=== PATIENT | male | born 1940 | race Caucasian/White ===

== ENCOUNTER → 2017-06-28 | Day surgery (SDC) | payer OTHER ==
[2017-06-21 15:30] VITALS: Ht 177.8 cm; Wt 109.5 kg
[~2017-06-28] VITALS: Ht 177.8 cm; Wt 109.5 kg
[~2017-06-28] MED LIST: ACET-1256 PO; ALLO100T PO; AMIT75TA2 PO; ASPCH81X PO; BYDUREON INJ; CLR10 PO; CYAN1SUB13 INJ; INSU1INJ33 SC; LIDOCAINE HCL 2% 2 ML VIAL (20MG/ML) ONE; LINA1TAB PO; LISI-729 PO; LPT/40 PO; MAGN400T6 PO; MELA1CAP9 PO; METO50TA7 PO; OMEP20CA59 PO; PLAVIX75 PO; PROB1TAB16 PO; PROPOFOL IV EMULSION 10 MG/ML 20 ML VIAL IV ONE; QUET1TAB34 PO; SODIUM CHLORIDE 0.9% 500ML 500 ML IV ONE; VENL150C56 PO; VITAMIN D2 PO; WARF3TAB PO; [UNRECOGNIZED DRUG - OTHER] PO
[2017-06-28 10:24] VITALS: TEMP 36.4
--- NOTE | 2017-06-28 10:33 | Endo History and Physical ---
History & Physical Date of Service: Jun 28, 2017. Chief Complaint: constipation Referring Physician: Dr. Gonsales History of Present Illness patient with intermittent rectal bleeding for a month, constipation and change in stool caliber. Needs colonoscopy to r/o Malignancy. Past Surgical History Hx Cardiac Surgery: Yes (HEART CATH X 2 (3 TOTAL STENTS PLACED), AVR) Hx Internal Defibrillator: No Hx Pacemaker: No Hx Abdominal Surgery: No Hx of Implantable Prosthesis: No Hx Post-Op Nausea and Vomiting: No Hx Cancer Surgery: No Hx Thoracic Surgery: No Hx Orthopedic: Yes (LUMBAR FUSION X 2) Hx Urinary Tract Surgery: No Family History None Social History Smoking Status: Former Smoker Hx Substance Use: No Hx Alcohol Use: No Allergies Coded Allergies: NO KNOWN DRUG ALLERGIES (Verified Allergy, Unknown, ., 06/28/17) Uncoded Allergies: PLASTIC (Allergy, Unknown, FLU REACTION AFTER WEARING OXYGEN-02 TUBING, 06/21/17) Current Medications Reported Home Medications Medications Dose Route/Sig Max Daily Dose Days Date Category Tylenol (Acetaminophen) 500 Mg Tab 1 Tab PO Q8 PRN 3 06/21/17 Reported [Swish/Swallow] 1 Dose PO QID 06/21/17 Reported B-12 (Cyanocobalamin) 1,000 Mcg Sub 1 Dose INJ MONTHLY 06/21/17 Reported [Bydureon] 1 Dose INJ WK 06/21/17 Reported Tresiba Flextouch (Insulin Degludec) 100 Unit/Ml Inj 35 Units SC BID 06/21/17 Reported Probiotic (Probiotic Product) 1 Tab Tab 1 Tab PO DAILY 06/21/17 Reported [Vitamin D2] 1 Tab PO DAILY 06/21/17 Reported Melatonin 10 Mg Cap 2 Cap PO HS 06/21/17 Reported Seroquel (Quetiapine Fumarate) 100 Mg Tab 150 Mg PO HS 06/21/17 Reported Elavil (Amitriptyline Hcl) 75 Mg Tab 75 Mg PO HS 06/21/17 Reported Tradjenta (Linagliptin) 5 Mg Tab 1 Tab PO QPM 06/21/17 Reported Claritin (Loratadine) 10 Mg Tab 10 Mg PO HS 06/21/17 Reported Zyloprim (Allopurinol) 100 Mg Tab 100 Mg PO HS 06/21/17 Reported Toprol-Xl (Metoprolol Succinate) 50 Mg Tabcr 25 Mg PO QAM 06/21/17 Reported Lipitor (Atorvastatin) 40 Mg Tab 2 Tab PO QPM 06/21/17 Reported Zestril (Lisinopril) 5 Mg Tab 5 Mg PO QAM 06/21/17 Reported Mag-Ox (Magnesium Oxide) 400 Mg Tab 400 Mg PO QAM 06/21/17 Reported Prilosec (Omeprazole) 20 Mg Capcr 20 Mg PO TID 06/21/17 Reported Effexor Extended Rel (Venlafaxine Hcl) 150 Mg Cap 150 Mg PO QAM 06/21/17 Reported Plavix (Clopidogrel Bisulfate) 75 Mg Tab 1 Tab PO Q2D 06/21/17 Reported Coumadin (Warfarin Sodium) 3 Mg Tab 3 Mg PO QPM 06/21/17 Reported Aspirin Chewable (Aspirin) 81 Mg Chew 81 Mg PO QAM 06/21/17 Reported Vital Signs Weight (Kilograms): 109.55 Height (Feet): 5 Height (Inches): 10 Date Time Temp Pulse Resp B/P (MAP) Pulse Ox O2 Delivery O2 Flow Rate FiO2 06/28/17 10:24 36.4 84 18 149/89 (109) 98 Room Air Physical Exam General Appearance: no apparent distress Respiratory/Chest: Auscultation: breath sounds normal Cardiovascular: Heart Auscultation: RRR Abdomen: Inspection & Palpation: soft, non-distended Assessment and Plan patient was explained in details regarding the risk, benefit and alternatives of colonoscopy and he agreed.
--- NOTE | 2017-06-28 11:22 | GI REPORT ---
Procedure Date: 06/28/2017 10:37 AM Procedure: Colonoscopy Indications: Rectal bleeding Medicines: Monitored Anesthesia Care Complications: No immediate complications. Estimated Blood Loss: Estimated blood loss: none. Procedure: Pre-Anesthesia Assessment: - Prior to the procedure, a History and Physical was performed, and patient medications and allergies were reviewed. The patient is competent. The risks and benefits of the procedure and the sedation options and risks were discussed with the patient. All questions were answered and informed consent was obtained. Patient identification and proposed procedure were verified by the physician and the nurse in the procedure room. Mental Status Examination: alert and oriented. Airway Examination: normal oropharyngeal airway and neck mobility. Respiratory Examination: clear to auscultation. CV Examination: normal. ASA Grade Assessment: III - A patient with severe systemic disease. After reviewing the risks and benefits, the patient was deemed in satisfactory condition to undergo the procedure. The anesthesia plan was to use monitored anesthesia care (MAC). Immediately prior to administration of medications, the patient was re-assessed for adequacy to receive sedatives. The heart rate, respiratory rate, oxygen saturations, blood pressure, adequacy of pulmonary ventilation, and response to care were monitored throughout the procedure. The physical status of the patient was re-assessed after the procedure. After I obtained informed consent, the scope was passed under direct vision. Throughout the procedure, the patient's blood pressure, pulse, and oxygen saturations were monitored continuously. The scope was introduced through the anus and advanced to the terminal ileum. The colonoscopy was performed without difficulty. The patient tolerated the procedure well. The quality of the bowel preparation was fair. The terminal ileum, ileocecal valve, appendiceal orifice, and rectum were photographed. Scope insertion time was 5 minutes. Scope withdrawal time was 10 minutes. The total duration of the procedure was 20 minutes. Findings: The perianal and digital rectal examinations were normal. The terminal ileum appeared normal. Multiple small and large-mouthed diverticula were found in the sigmoid colon. Non-bleeding internal hemorrhoids were found during retroflexion. The hemorrhoids were small. Impression: - The examined portion of the ileum was normal. - Diverticulosis in the sigmoid colon. - Non-bleeding internal hemorrhoids. - No specimens collected. Recommendation: - Discharge patient to home. - Laxatives. - Avoid constipation. - Repeat colonoscopy in 5 years for screening purposes. Stanford Mills MD 06/28/2017 11:22:04 AM This report has been signed electronically. Note Initiated On: 06/28/2017 10:37 AM I attest to the content of the Intraoperative Record and orders documented therein, exceptions below
--- NOTE | 2017-06-28 11:26 | Discharge Instructions ---
Endoscopy Patient Instructions Date / Procedure(s) Performed Jun 28, 2017. Colonoscopy Allergy Information Coded Allergies: NO KNOWN DRUG ALLERGIES (Verified Allergy, Unknown, ., 06/28/17) Uncoded Allergies: PLASTIC (Allergy, Unknown, FLU REACTION AFTER WEARING OXYGEN-02 TUBING, 06/21/17) Discharge Date / Findings Jun 28, 2017. Diverticulosis Hemorrhoids Medication Instructions Stopped Medication(s): Coumadin and Plavix stopped 06-20-17. ASA stopped 06-27-17. Reported Home Medications Medications Dose Route/Sig Max Daily Dose Days Date Category Tylenol (Acetaminophen) 500 Mg Tab 1 Tab PO Q8 PRN 3 06/21/17 Reported [Swish/Swallow] 1 Dose PO QID 06/21/17 Reported B-12 (Cyanocobalamin) 1,000 Mcg Sub 1 Dose INJ MONTHLY 06/21/17 Reported [Bydureon] 1 Dose INJ WK 06/21/17 Reported Tresiba Flextouch (Insulin Degludec) 100 Unit/Ml Inj 35 Units SC BID 06/21/17 Reported Probiotic (Probiotic Product) 1 Tab Tab 1 Tab PO DAILY 06/21/17 Reported [Vitamin D2] 1 Tab PO DAILY 06/21/17 Reported Melatonin 10 Mg Cap 2 Cap PO HS 06/21/17 Reported Seroquel (Quetiapine Fumarate) 100 Mg Tab 150 Mg PO HS 06/21/17 Reported Elavil (Amitriptyline Hcl) 75 Mg Tab 75 Mg PO HS 06/21/17 Reported Tradjenta (Linagliptin) 5 Mg Tab 1 Tab PO QPM 06/21/17 Reported Claritin (Loratadine) 10 Mg Tab 10 Mg PO HS 06/21/17 Reported Zyloprim (Allopurinol) 100 Mg Tab 100 Mg PO HS 06/21/17 Reported Toprol-Xl (Metoprolol Succinate) 50 Mg Tabcr 25 Mg PO QAM 06/21/17 Reported Lipitor (Atorvastatin) 40 Mg Tab 2 Tab PO QPM 06/21/17 Reported Zestril (Lisinopril) 5 Mg Tab 5 Mg PO QAM 06/21/17 Reported Mag-Ox (Magnesium Oxide) 400 Mg Tab 400 Mg PO QAM 06/21/17 Reported Prilosec (Omeprazole) 20 Mg Capcr 20 Mg PO TID 06/21/17 Reported Effexor Extended Rel (Venlafaxine Hcl) 150 Mg Cap 150 Mg PO QAM 06/21/17 Reported Plavix (Clopidogrel Bisulfate) 75 Mg Tab 1 Tab PO Q2D 06/21/17 Reported Coumadin (Warfarin Sodium) 3 Mg Tab 3 Mg PO QPM 06/21/17 Reported Aspirin Chewable (Aspirin) 81 Mg Chew 81 Mg PO QAM 06/21/17 Reported Provider Instructions Activity Restrictions - No exercising or heavy lifting for 24 hours. - Do not drink alcohol the day of the procedure. - Do not drive a car or operate machinery until the day after the procedure. - Do not make any important decisions or sign important papers in 24 hours after the procedure. Following Day: - Return to full activity which may include returning to work/school. Diet Start your diet with liquids and light foods (jello, soup, juice, toast). Then eat your usual diet if not nauseated. Treatment For Common After Affects For mild abdominal pain, bloating, or excessive gas: - Rest - Eat lightly - Lie on right side Follow-Up Information laxatives Avoid constipation Daily Miralax Follow-up with Dr. Gonsales as scheduled Anesthesia Information What You Should Know You have had a procedure that required some medicine to reduce anxiety and discomfort. This treatment is called moderate sedation. After receiving the treatment, you may be sleepy, but you will be able to breathe on your own. The effects of the treatment may last for several hours. Follow these instructions along with Activity/Diet recommendations noted above: * Do NOT do anything where dizziness or clumsiness would be dangerous. * Rest quietly at home today, then you can be up and about tomorrow. * Have a responsible person stay with you the rest of today. * You may have had an I.V. today. If so, you may take the dressing off later today. Recommendations Call your doctor if: * Trouble breathing * Continuous vomiting for more than 24 hours * Temperature above 101 degrees * Severe abdominal pain or bloating * Pain not relieved by pain medicine ordered * There is increased drainage or redness from any incision * A large amount of rectal bleeding greater than 2-3 tablespoons. (If you had a polyp/s removed or have hemorrhoids, a small amount of blood - from the rectum is to be expected.) * You have any unanswered questions or concerns. IN THE EVENT OF A SERIOUS EMERGENCY, GO TO THE NEAREST EMERGENCY ROOM Your discharge instructions were prepared by provider Stanford Mills. Patient Instructions Signature Page Flavio Gutierrez Patient (or Guardian) Signature/Date: I have read and understand the instructions given to me by my caregivers. Caregiver/RN/Doctor Signature/Date: The above-named patient and/or guardian has received patient instructions on this date. + Original Patient Signature Page (only) stays with chart. Please make copy for patient.
--- NOTE | 2017-06-28 11:33 | Anesthesiology Progress Note ---
Anesthesia Post Op Note Date & Time Jun 28, 2017 at 11:33 Vital Signs Pain Intensity: 0 Vital Signs Past 12 Hours Date Time Temp Pulse Resp B/P (MAP) Pulse Ox O2 Delivery O2 Flow Rate FiO2 06/28/17 11:29 77 18 124/99 (107) 97 Room Air 06/28/17 11:19 77 18 149/71 (97) 97 Room Air 06/28/17 11:15 79 18 143/85 (104) 98 Room Air 06/28/17 10:24 36.4 84 18 149/89 (109) 98 Room Air Notes Mental Status: alert / awake / arousable, participated in evaluation Pt Amnestic to Procedure: Yes Nausea / Vomiting: adequately controlled Pain: adequately controlled Airway Patency, RR, SpO2: stable & adequate BP & HR: stable & adequate Hydration State: stable & adequate Anesthetic Complications: no major complications apparent
[2017-06-28 11:39] VITALS: BP 135/73; PULSE 68; O2SAT 97
== END | disposition home or self-care (01) ==
LOC: C.GI 09:20
PROVIDERS: ATTEND Student in an Organized Health Care Education/Training Program
DX: K57.30 Diverticulosis of large intestine without perforation or abscess without bleeding (principal); K64.8 Other hemorrhoids; Z95.5 Presence of coronary angioplasty implant and graft; Z95.2 Presence of prosthetic heart valve; Z87.891 Personal history of nicotine dependence; Z79.01 Long term (current) use of anticoagulants; Z79.82 Long term (current) use of aspirin; Z79.899 Other long term (current) drug therapy